=== PATIENT | male | born 1975 | race Caucasian/White ===

== ENCOUNTER 2024-02-10 08:24 | Outpatient (CLI) | payer BC, SELFPAY ==
--- OUTSIDE RECORDS SUMMARY | 2024-02-10 08:26 | XMS_ITS | Clinical Summary ---
Author Name Unknown Organization [facility] [employer] [facility] s & [facility] Address [place], [place] [address] Care Team Providers Care Data Warehousing Manager Name Role Phone Pcp, No Primary Care Provider Unavailabl e Social History Tobacco Use Types Packs/Day Years Used Date Smoking Tobacco: Never Assessed Sex and Gender Information Value Date Recorded Sex Assigned at Not on file Gender Identity Not on file Sexual Orientation Not on file Plan of Treatment Not on file Care Teams Data Warehousing Manager Relationship Specialty Start Date End Date Pcp, No . PCP - General 12/04/10
== END 2024-02-10 08:25 | disposition home or self-care (01) ==
PROVIDERS: PCP Family Medicine; Visit Provider Family Medicine
DX: E78.2 Mixed hyperlipidemia (principal)
CPT/HCPCS: 80053; 80061

== ENCOUNTER 2025-03-09 08:47 | Outpatient (CLI) | payer BC, SELFPAY | END 2025-03-09 08:48 | disposition home or self-care (01) | PROVIDERS: PCP Family Medicine; Visit Provider Family Medicine | DX: E78.5 Hyperlipidemia, unspecified (principal); I10 Essential (primary) hypertension | CPT/HCPCS: 80053; 80061 ==